=== PATIENT | female | born 1995 | race Caucasian/White ===

== ENCOUNTER 2024-10-28 10:00 | Emergency (ER) | payer BC, SELFPAY ==
[2024-10-28 10:00] VITALS: BMI 33.3
[2024-10-28 10:08] VITALS: BP 115/77; PULSE 83; RESP 18; TEMP 36.7; O2SAT 99; BMI 34.9
--- NOTE | 2024-10-28 10:15 | XR_ITS ---
EXAMINATION: Ankle, right 3 views . Technique: Ankle AP, oblique, lateral 3 views Date and time of exam: October 28, 2024 1033 hours INDICATIONS: Twisting injury to the ankle today, ankle pain. FINDINGS: No acute fracture No dislocation No foreign body IMPRESSION: No acute fracture
--- NOTE | 2024-10-28 10:15 | XR_ITS ---
Examination: Foot, right, 3 views Technique: AP, oblique, lateral views foot, 3 views Date and time of exam: October 28, 2024 1033 hours INDICATIONS: Twisting injury to the foot and ankle, foot pain FINDINGS: Limited technique No acute fracture Opacification IMPRESSION: No acute fracture
--- NOTE | 2024-10-28 11:37 | EDNOTE_ITS ---
Lower Extremity Injury RME/HPI General Chief Complaint: Ankle/Foot Injury Stated Complaint: R ANKLE INJURY Time Seen by Provider: 10/28/24 10:04 Arrival date/time: 10/28/24 10:00 49-year-old female presents to the emergency department today for complaint of right ankle pain patient reports she was walking and twisted her right ankle patient reports pain is worse with movement. Limitations: no limitations Related Data Previous Rx's ?Medication ?Instructions ?Recorded ibuprofen 800 mg tablet 800 mg PO TID PRN pain #30 t abs 10/28/24 Allergies Allergy/AdvReac Type Severity Reaction Status Date / Time No Known Allergies Allergy Verified 10/28/24 10:02 Review of Systems Review of Systems Systems Reviewed: All systems reviewed, normal except as documented Constitutional Constitutional: Reports system reviewed and no additional complaints, except as documented, Denies fever(s) and Denies headache(s) Eyes Eyes: Reports system reviewed and no additional complaints, except as documented and Denies blurry vision ENT Ears, Nose, Mouth, and Throat: Reports system reviewed and no additional complaints, except as documented, Denies headache(s), Denies nasal congestion and Denies nasal discharge Cardiovascular Cardiovascular: Reports system reviewed and no additional complaints, except as documented, Denies chest pain and Denies dyspnea Respiratory Respiratory: Reports system reviewed and no additional complaints, except as documented, Denies chest congestion, Denies cough and Denies dyspnea Gastrointestinal Gastrointestinal: Reports system reviewed and no additional complaints, except as documented and Denies abdominal pain Musculoskeletal Musculoskeletal: Reports system reviewed and no additional complaints, except as documented, Reports abnormal gait, Denies arthralgias, Reports joint swelling, Reports stiffness and Denies tingling Integumentary/Breasts Skin/Breast: Reports system reviewed and no additional complaints, except as documented and Denies rash Neurologic Neurologic: Reports system reviewed and no additional complaints, except as d ocumented, Reports as per HPI, Reports abnormal gait, Denies headache(s) and Denies tingling Past Medical History Past Medical History CARDIAC: Negative Congestive Heart Failure RESPIRATORY: Negative Chronic Obstructive Pulmonary Disease (COPD) GENITOURINARY: Negative Renal Disease ENDOCRINE: Negative Diabetes Mellitus Type 1 or Diabetes Mellitus Type 2 Family History FAMILY HISTORY: Positive Family Cancer Social History SMOKING STATUS: Never smoker ED Exam General Limitations: Present no limitations General appearance: Present alert and in no apparent distress Head Head exam: Present atraumatic Eye Eye exam: Present normal appearance, PERRL and EOMI ENT ENT exam: Present normal exam, normal oropharynx and mucous membranes moist Neck Neck exam: Present normal inspection, full ROM and trachea midline Chest Chest inspection: Present normal inspection and symmetric chest wall rise Respiratory Respiratory exam: Present normal lung sounds bilaterally Cardiovascular Cardiovascular exam: Present regular rate, normal rhythm and normal heart sounds Abdominal Exam Abdominal exam: Present soft and normal bowel sounds Extremities Exam Extremities exam: Present full ROM, tenderness, normal capillary refill and joint swelling Back Exam Back exam: Present normal inspection and full ROM Neurological Exam Neurological exam: Present alert, oriented X3 and CN II-XII intact Psychiatric Psychiatric exam: Present normal affect and normal mood Skin Skin exam: Present warm, dry, intact and normal color Course Quality Measures none Orders Category Date Time Status ranjan wrap [Splint / Immobilizer] STAT Care 10/28/24 10:59 Completed XR ankle comp RT min 3V Stat Exams 10/28/24 10:15 Completed XR foot comp RT min 3V Stat Exams 10/28/24 10:15 Completed Vital Signs Vital signs: Vital Signs Temperature 98.1 F 10/28/24 10:08 Pulse Rate 83 10/28/24 10:08 Respiratory Rate 18 10/28/24 10:08 Blood Pressure 115/77 10/28/24 10:08 Pulse Oximetry (%) 99 10/28/24 10:08 Oxygen Delivery Method Room Air 10/28/24 10:08 O2 saturation 99% room air within normal limits Extremity Injury, Lower MDM Narrative MDM Narrative:: 49-year-old female presents to the emergency department today for complaint of right ankle pain patient reports she was walking and twisted her right ankle patient reports pain is worse with movement. On exam patient well-appearing patient does not appear ill or toxic no acute distress Imaging of the right foot and ankle obtained no acute fracture dislocation noted Patient placed in Ranjan wrap Patient discharged home in no distress to follow-up with primary care doctor in the next 24 to 48 hours and for any worsening symptoms to return to the ER immediately Patient data External records reviewed:: [facility] previous records Clinical information provided by:: patient Social determinants that could affect healthcare access:: none Patient has the following chronic illnesses:: None How is presenting disease/condition affected by chronic disease/condition?: no chronic disease Evaluation data The following diagnostics were reviewed and interpreted by me:: radiology exam(s) Lab and/or radiology exams considered but not ordered:: Radiology obtain Interpretation Summary: Reviewed by me Medications / Prescriptions Medications or Prescriptions considered but not ordered:: Given Medication administrations:: Given Consultations Consultation(s) initiated? (list below): No Diagnosis Extremity Injury, Lower Differential Diagnosis: ankle sprain and strain and ankle fracture Most likely diagnosis given after review of the tests above:: Foot sprain Admission Indicated Admission indicated?: not indicated Admission Request Was there a request for admission?: No Disposition Plan Disposition Plan: Discharge Discharge Attestation Discharge Attestation: The patient and all family members were given an opportunity to ask questions and understood the discharge instructions. Discharge instructions specifically effects, indications for sooner follow up or return to the emergency department, and the expected course of current diagnosis. Patient condition: Stable Discharge Plan Plan Patient Disposition: HOME (Self Care) Discharge Disposition comment: stable Prescriptions/Referrals Prescriptions/Med Rec: New ibuprofen 800 mg tablet 800 mg PO TID PRN (Reason: pain) Qty: 30 0RF Referrals: No Primary/Family,Physician [Primary Care Provider] - 10/30/24 Problem List Clinical Impression: Ankle sprain and strain Patient/Caregiver Discharge Instructions Additional Instructions: Please follow up with your primary care doctor in the next 24-48hrs for any worsening symptoms return here immediately Print Language: Vincentian Stand Alone Forms: Barbara Award Info., Patient Portal Info Letter PA/DAVE Supervising Physician PA/DAVE Supervising Physician: dr clark
== END 2024-10-28 11:24 | disposition home or self-care (01) ==
PROVIDERS: Emergency Provider Nurse Practitioner Primary Care
DX: S93.401A Sprain of unspecified ligament of right ankle, initial encounter (principal); S96.911A Strain of unspecified muscle and tendon at ankle and foot level, right foot, initial encounter; X50.1XXA Overexertion from prolonged static or awkward postures, initial encounter
CPT/HCPCS: 73610; 73630; 99283

== ENCOUNTER → 2025-01-17 | Outpatient (CLI) | payer BC, SELFPAY ==
--- NOTE | 2025-01-17 09:00 | XR_ITS ---
Examination: MRI right ankle without contrast Date and time of exam: January 17 2025, 1225 hours INDICATIONS: Anterior ankle pain radiating to the lateral side of the ankle 2 months Technique: Multiple MRI axial and sagittal sections lumbar spine. Sagittal T2-weighted images, TR 3500, TE 118 T1 weighted transverse sections, TR 688 T8.5, T2-weighted sagittal sections T1 weighted sagittal sections TR 621, TE 30 T2 axial sections, TR 4, 190, TE 84. Findings: Mild thickening of the Achilles tendon Normal plantar fascia No occult fracture or bone contusion or marrow edema or avascular necrosis Negative for sinus Tarsi syndrome Anterior posterior inferior tibiofibular ligaments intact Moderate strain anterior talofibular ligament Mild tendinitis posterior tibial, flexor digitorum, peroneus longus and brevis tendons Extensor tendons intact IMPRESSION: No occult fracture, bone contusion marrow edema or avascular necrosis Moderate strain anterior talofibular ligament Tendinitis involving posterior tibial, flexor digitorum, peroneus longus or brevis tendons
== END | disposition home or self-care (01) ==
LOC: SMRI 08:53
PROVIDERS: PCP Family Medicine; Referring Provider Family Medicine; Visit Provider Family Medicine
DX: M24.271 Disorder of ligament, right ankle (principal); M76.821 Posterior tibial tendinitis, right leg
CPT/HCPCS: 73721